=== PATIENT | female | born 1975 | race Caucasian/White ===

== ENCOUNTER → 2017-01-12 | Outpatient (CLI) | payer OTHER ==
[~2017-01-12] MED LIST: CONTRAST GIVEN MC PRN; IOHEXOL 240 MG/ML 50ML VIAL. PO ONE; IOHEXOL 300 MG/ML 100ML VIAL. IV ONE; MEDR150D3 IM; METF500T4 PO
--- NOTE | 2017-01-12 11:46 | KCIC ---
Examination: CT of the pelvis with oral and IV contrast. HISTORY History of right groin lump post Caesarian section. COMPARISON None available. TECHNIQUE Axial CT images of the pelvis were performed with oral and IV contrast. Coronal sagittal reformats were performed. Exposure: One or more of the following dose reduction technique were utilized for this examination: 1. Automated exposure control. 2.Adjustment of MA and /or KV according to patient size. 3. Use of iterative reconstruction technique. Findings: There is a anterior abdominal wall ventral hernia identified in the lower abdomen containing loops of small bowel, fat and the omentum. The visualized small bowel is nondilated. Feces and gas noted in the colon. The urinary bladder is mildly distended. IMPRESSION Moderate size anterior abdominal wall ventral hernia containing loops of small bowel, fat and omentum. No evidence of bowel obstruction. Electronically signed by: Landon Lancaster (Jan 12, 2017 11:45:08)
--- NOTE | 2017-01-12 13:09 | KCIC ---
Bilateral digital screening mammograms with CAD: HISTORY Routine screening. COMPARISON Baseline exam. FINDINGS Breast density category A. The skin and nipples show no abnormalities. No abnormal lymph nodes are seen in the axilla. The breast parenchyma is predominately fatty. There are no dominant masses, suspicious calcifications or architectural distortions. IMPRESSION No evidence of malignancy. Recommend routine annual mammographic screening. This study was interpreted with the benefit of Computerized Aided Detection (CAD). Mammography is not 100% sensitive in detecting breast cancer. Therefore, a self breast exam and a clinical breast exam are very important. A negative mammogram does not negate a clinically suspicious finding and should not result in a delay in biopsying a clinically suspicious abnormality. BI-RADS category 1. Negative. This patient's information has been entered into a reminder system for the patient to be notified with the results of this examination and a target date for her next mammograms. Electronically signed by: Almita Narvaez MD (Jan 12, 2017 13:07:27)
== END | disposition home or self-care (01) ==
LOC: KCIC CT 09:02
PROVIDERS: ATTEND Internal Medicine
DX: Z12.31 Encounter for screening mammogram for malignant neoplasm of breast (principal); R19.09 Other intra-abdominal and pelvic swelling, mass and lump
CPT/HCPCS: 72193; 82565; G0202; Q9966; Q9967; 77067

== ENCOUNTER → 2017-08-03 | Outpatient (CLI) | payer OTHER ==
[~2017-08-03] MED LIST changes: -CONTRAST GIVEN MC PRN; -IOHEXOL 240 MG/ML 50ML VIAL. PO ONE; -IOHEXOL 300 MG/ML 100ML VIAL. IV ONE
--- NOTE | 2017-08-03 16:28 | KCIC ---
Pelvic ultrasound History: Vaginal bleeding for 4 months Comparison: CT pelvis January 12, 2017. Technique: Transabdominal ultrasound was performed to evaluate the uterine fundus. Endovaginal imaging was performed to evaluate optimally the endometrial canal and lower uterine segment. TRANSABDOMINAL IMAGING Findings: The uterus measures approximately 6 cm in length and is grossly unremarkable. Endometrium is not well seen. Neither ovary is seen with transabdominal imaging. ENDOVAGINAL IMAGING Findings: The uterus measures 7.4 cm in length and demonstrates intramural leiomyoma involving the anterior uterine body; leiomyoma measures 2.6 cm in maximum dimension. The endometrium measures 5 mm. Right ovary measures 2.7 x 3.9 x 2.7 cm and demonstrates small physiologic follicles. The left ovary measures 1.7 x 2.6 x 1.6 cm and is unremarkable. No adnexal masses are identified. No significant free fluid is identified within the pelvis. Both ovaries demonstrates normal vascular flow upon Doppler interrogation and are without evidence of torsion. Impression: 1. Intramural leiomyoma involving the anterior uterine body. 2. Endometrial thickness is within normal limits at 5 mm. Electronically signed by: Brady Ramirez MD (08/03/2017 4:24 PM) [place] [id number]
== END | disposition home or self-care (01) ==
LOC: KCIC US 14:49
PROVIDERS: ATTEND Internal Medicine
DX: N93.9 Abnormal uterine and vaginal bleeding, unspecified (principal); D25.1 Intramural leiomyoma of uterus
CPT/HCPCS: 76830; 76856

== ENCOUNTER → 2019-07-30 | Outpatient (CLI) | payer OTHER ==
[~2019-07-30] MED LIST changes: +METF500T16 PO; -METF500T4 PO
--- NOTE | 2019-07-30 15:14 | RAD ---
DATE: 07/30/2019 EXAM: MAMMO ELVA MARTINEZ, BREAST LEFT HISTORY: Left breast palpable lateral malleoli COMPARISON: Mammogram from 01/12/2017 This study was interpreted with the benefit of Computerized Aided Detection (CAD). Breast Density: FATTY The breast parenchyma is primarily fatty replaced. Breast parenchyma level density A. FINDINGS: Bilateral 3-D tomosynthesis was performed in CC and MLO projections. 2-D CC and MLO views are provided. Right breast: There are no suspicious microcalcifications, masses or areas of architectural distortion. Left breast: There are no suspicious microcalcifications, masses or areas of architectural distortion. Bilateral mammograms compared to prior examinations and appears unchanged. Targeted sonographic evaluation of the left breast in area of palpable abnormality was performed. There is a 12 x 6 mm hyperechoic mass without posterior characteristics in parallel orientation suggestive of a lipoma. This finding is identified at the 10:00 position, 16 cm from the nipple. In the area of second palpable abnormality in similar region, there is no definite sonographic correlate. In the left axilla, there is a 1.6 x 0.7 x 0.9 cm hypoechoic mass with posterior acoustic enhancement. Consider shouldn't be given for a complicated cyst or lymph node. It is difficult to determine whether this is solid or cystic given deep location in the axilla. A 3 month follow-up ultrasound is recommended for this probably benign finding. IMPRESSION: 1. Negative bilateral mammogram. 2. Palpable abnormality in the left upper breast most favors a lipoma which is benign. Additional palpable abnormality could reflect additional mild, although this is not visualized on either mammogram or ultrasound. 3. Probably benign lymph node or complicated cyst in the left axilla measuring 1.6 cm. 3 month follow-up ultrasound is recommended. BI-RADS CATEGORY: 3 PROBABLY BENIGN FINDING(S)-SHORT INTERVAL FOLLOW-UP SUGGESTED RECOMMENDED FOLLOW-UP: 3M 3 MONTH FOLLOW-UP PQRS compliance statement: Mammography is a sensitive method for finding small breast cancers, but it does not detect them all and is not a substitute for careful clinical examination. A negative mammogram does not negate a clinically suspicious finding and should not result in delay in biopsying a clinically suspicious abnormality. "Our facility is accredited by the [employer] Mammography Program."
== END | disposition home or self-care (01) ==
LOC: MAMMO 12:24
PROVIDERS: ATTEND Family Medicine
DX: N63.20 Unspecified lump in the left breast, unspecified quadrant (principal); R92.8 Other abnormal and inconclusive findings on diagnostic imaging of breast
CPT/HCPCS: 76641; 77066; G0279; 77062

== ENCOUNTER → 2019-10-29 | Outpatient (CLI) | payer OTHER ==
--- NOTE | 2019-10-29 14:20 | RAD ---
LEFT BREAST SONOGRAM AND LEFT AXILLARY SONOGRAM Clinical indications: Follow-up of left axillary hypoechoic nodule and follow-up of subcutaneous hyperechoic solid nodule seen previously. The patient stated that the palpable lump of the left breast is not present now. FINDINGS: High-resolution sonography of the 10:00 position of the left breast 16 cm from the nipple (in the area of the previously seen palpable lump seen on July 30, 2019) was performed. On the previous study, a subcutaneous hyperechoic solid nodule was seen measuring 12 mm. There is a hyperechoic nodule present here but it is deeper in position and smaller in size. Therefore, it may represent the same nodule which has decreased in size. This may have represented an area of inflammation rather than a lipoma. Today's measurements are 7 mm x 6 mm x 4 mm. On the previous study, the measurements were 11 mm x 12 mm x 6 mm. Sonography of the left axilla was performed. Deep within the left axilla is a hypoechoic nodule with a thin echogenic capsule and sound through transmission measuring 13 mm x 6 mm x 12 mm in size. On the previous study, the measurements were 16 mm x 7 mm x 9 mm. Therefore, there is no increase in size. This may represent a complex cyst or possibly a hypoechoic lymph node. Recommend continued sonographic follow-up in 9 months. IMPRESSION: Palpable lump of the 10:00 position of the left breast is not palpable now according to the patient. In addition, the hyperechoic solid nodule seen previously in this area has decreased in size. Therefore, this may represent an area of inflammation rather than a lipoma. This includes the possibility of fat necrosis. No abscess is seen. There has been no change in size of the hypoechoic nodule of the left axillary region. This may represent a complex cyst or possibly a hypoechoic lymph node. Recommend continued left axillary sonographic follow-up in 9 months to coincide with the annual screening mammogram. Certainly, if a palpable lump continues to grow in size in this area clinically, then earlier evaluation may be needed. BI-RADS Category 3, probable benign finding. The patient information was entered into the data reminder system with a target due date for the next mammogram and ultrasound study of July 31, 2020.
== END | disposition home or self-care (01) ==
LOC: US 13:23
PROVIDERS: ATTEND Family Medicine
DX: R92.8 Other abnormal and inconclusive findings on diagnostic imaging of breast (principal)
CPT/HCPCS: 76641

== ENCOUNTER → 2020-01-21 | Outpatient (CLI) | payer OTHER ==
--- NOTE | 2020-01-21 15:55 | KCIC ---
CHEST PA LATERAL History: Cough for 3 months, second hand smoke exposure Comparison: None. Findings: 2 views of the chest are submitted. There is no lobar consolidation, pleural fluid, or pneumothorax. Heart size is considered within normal limits. There is some fullness in the left suprahilar region which may be a vessel although otherwise difficult to further characterize. There is likely small granuloma the left lung base. Impression: 1. There is no significant infiltrate. There is some fullness of the left suprahilar region which may be due to the vasculature, difficult to exclude nodule by radiograph. This would be most accurately characterized by CT although could be reevaluated on 3 month radiographic follow, no previous exam to evaluate for change. Electronically signed by: Luc Aquino MD (01/21/2020 3:52 PM) [id number]
== END ==
LOC: KCIC 14:16
PROVIDERS: ATTEND Family Medicine
DX: R05 Cough (principal)
CPT/HCPCS: 71046

== ENCOUNTER → 2021-04-27 | Outpatient (CLI) | payer OTHER ==
--- NOTE | 2021-04-27 13:32 | KCIC ---
AP and Lateral Views of the Chest 04/27/2021 10:52 AM Indication: Reason: BRONCHITIS / Spl. Instructions: Productive green sputum cough since March 30. / Hi story: Comparison: Chest radiograph January 21, 2020 Findings: There is no focal consolidation or infiltrate identified. The cardiomediastinal silhouette is within normal limits. There is no evidence of pneumothorax or pleural effusion. No acute osseous a bnormalities are identified. Impression: No evidence of acute cardiopulmonary process. Electronically signed by: Ryan Awan MD (04/27/2021 1:30 PM) [id number]
== END ==
LOC: KCIC 10:47
PROVIDERS: ATTEND Family Medicine
DX: J40 Bronchitis, not specified as acute or chronic (principal)
CPT/HCPCS: 71046